=== PATIENT | male | born 1965 | race Caucasian/White ===

== ENCOUNTER 2017-09-09 14:21 | Inpatient (IN) | payer OTHER | END 2017-09-14 11:30 | disposition other institution (70) | DRG 773 | LOC: YASAS 14:21 → Y6N 18:00 | PROVIDERS: ADMIT Internal Medicine | PROC: HZ2ZZZZ Detoxification Services for Substance Abuse Treatment (ICD-10-PCS; principal; 2017-09-09) | CPT/HCPCS: 36415; 71046-TC-FY; 71250-TC; 80053; 81003; 85027; 86593; 87389; 93005; 93010; J0735 ==

== ENCOUNTER 2017-09-14 11:41 | Inpatient (IN) | payer OTHER ==
--- NOTE | 2017-09-14 12:11 | HP ---
Psychiatrist Admission - Data Date of interview: 09/14/17 Admission source: 6N Identifying data: This is the second [facility] admission for this 51 years old single male, father of 2 children, unemployed on public assistance, homeless Medical History: Significant for bronchial asthma, hepatitis C, PPD+ and history of surgery for appendectomy at age 21. Smokes 3 cigarettes daily Psychiatric History: Reports that his first psychiatric contact was in 2011 at [facility] in the [place] where he was participating in [employer]. Claims that he went to see that psychiatrist for depression in the context of homelessness. However when he disclosed to him about hearing voices once in 2001 in [place], after using heroin mixed with horse tranquilizer, he was prescribed Zoloft and Zyprexa. Reports that he did not take medications regularly and stopped completely when he stopped taking methadone February of 2015. Denies previous psychiatric hospitalization or suicidal attempt. At present, reports feeling and sleeping well Physical/Sexual Abuse/Trauma History: Denies history of physical or sexual abuse , and no history of service. Additional Comment: Reports history of 3-4 previous misdemeanor arrests on charges of trespassing(jumping the turnstile) Allergies/Adverse Reactions: Allergies Allergy/AdvReac Type Severity Reaction Status Date / Time Fish Containing Products Allergy Severe Rash Verified 09/09/17 16:43 tomato Allergy Severe Verified 09/09/17 16:43 Date of last physical exam: 09/09/17 Concur with the findings of this exam: Yes - Substance Abuse/Tx History Hx Alcohol Use: No Hx Substance Use: Yes Substance Use Type: Heroin (Started using heroin at age 18, consumes 5 bags daily. Last used on 09/08/17) Hx Substance Use Treatment: Yes (2 previous inpt detox & one inpt rehab @ [facility]( 3W)May-Jun 2015) Mental Status Exam - Mental Status Exam Alert and Oriented to: Time, Place, Person Cognitive Function: Fair Patient Appearance: Disheveled Mood: Hopeful, Euthymic Patient Behavior: Cooperative Speech Pattern: Clear Voice Loudness: Normal Thought Process: Intact, Goal Oriented Hallucinations: Denies Suicidal Ideation: Denies Homicidal Ideation: Denies Insight/Judgement: Fair Sleep: Well Appetite: Good Muscle strength/Tone: Normal Gait/Station: Normal Psychiatric Findings - Problem List (Lydia 1, 2,3) (1) Opioid dependence Current Visit: No Status: Acute Qualifiers: Substance use status: uncomplicated Qualified Code(s): F11.20 - Opioid dependence, uncomplicated (2) Nicotine dependence Current Visit: No Status: Chronic Qualifiers: Nicotine product type: cigarettes Substance use status: uncomplicated Qualified Code(s): F17.210 - Nicotine dependence, cigarettes, uncomplicated (3) Bronchial asthma Current Visit: Yes Status: Chronic (4) Hepatitis-C Current Visit: Yes Status: Suspected - Initial Treatment Plan Initial Treatment Plan: Monitor progress
[2017-09-14] MEDS ORDERED: guaiFENesin/D-METHORPHAN HB 10 ML UNIT-DOSE CUPS PO PRN (13:50)
[2017-09-14] MEDS ORDERED: MAGNESIUM CITRATE 300 ML BOTTLE PO PRN (13:50)
[2017-09-14] MEDS ORDERED: ACETAMINOPHEN 325 MG TABLET (FP) PO PRN (13:50)
[2017-09-14] MEDS ORDERED: hydrOXYzine PAMOATE 50 MG CAPSULE (FP) PO PRN (13:50)
[2017-09-14] MEDS ORDERED: LOPERAMIDE HCL 2 MG CAPSULE PO PRN (13:50)
[2017-09-14] MEDS ORDERED: MAGNESIUM HYDROX 2400MG/30ML ORAL SUSPENSION 30 ML CUP PO PRN (13:50)
[2017-09-14] MEDS ORDERED: IBUPROFEN 400 MG TABLET (FP) PO PRN (13:50)
[2017-09-14] MEDS ORDERED: P-EPHED 60MG/TRIPROLIDI 2.5MG TABLET PO PRN (13:50)
[2017-09-14] MEDS ORDERED: MAG HYDROX/AL HYDROX/SIMETH 30 ML UNIT-DOSE CUP PO PRN (13:50)
[2017-09-14] MEDS ORDERED: MENTHOL/PHENOL 1 EACH UD MM PRN (13:50)
--- NOTE | 2017-09-14 13:50 | HP ---
[facility] Rehab Assess/Revision - Admission History Admitted to Rehab from: [facility] Date of Admission to Rehab: 09/14/17 - Vital signs Vital Signs: Vital Signs Period Temp Pulse Resp BP Sys/Vázquez Pulse Ox Last 24 Hr 98.2 F 73 20 98/70 - Findings Detox History & Physical reviewed: Yes Concur with findings: Yes Comments/Additional Findings: for rehab as protocol Inpatient Rehab Admission - Initial Determination Are CD services needed?: Yes Free of communicable disease: Yes Not in need of hospitalization: Yes - Rehab Admission Criteria Previous failed treatment: Yes Poor recovery environment: Yes Comorbidities: Yes Lacks judgement: No Patient is meeting Inpatient Rehab admission criteria:: Yes
[2017-09-14] MEDS ORDERED: ALBUTEROL SO4 18 GM HFA INHALER IH PRN (13:51)
[2017-09-14] MEDS: CLOTRIMAZOLE 10 MG TROCHE (FP) PO SCH ×2 (17:38→21:37)
[2017-09-14] MEDS: BUDESONIDE/FORMETEROL FUMARATE 80/4.5 mcg INHALER IH SCH (21:35)
[2017-09-14] MEDS: THIAMINE HCL 100 MG TABLET (FP) PO SCH (21:36)
[2017-09-15] MEDS: CLOTRIMAZOLE 10 MG TROCHE (FP) PO SCH ×5 (06:20→21:54)
[2017-09-15] MEDS: PRENATAL VITAMINS W/ FOLIC ACID TABLET (FP) PO SCH (10:30)
[2017-09-15] MEDS: BUDESONIDE/FORMETEROL FUMARATE 80/4.5 mcg INHALER IH SCH ×2 (10:30→21:53)
[2017-09-15] MEDS: THIAMINE HCL 100 MG TABLET (FP) PO SCH (21:54)
[2017-09-16] MEDS: CLOTRIMAZOLE 10 MG TROCHE (FP) PO SCH ×5 (07:07→21:53)
[2017-09-16] MEDS: PRENATAL VITAMINS W/ FOLIC ACID TABLET (FP) PO SCH (10:44)
[2017-09-16] MEDS: BUDESONIDE/FORMETEROL FUMARATE 80/4.5 mcg INHALER IH SCH ×2 (10:45→21:53)
[2017-09-16] MEDS: MELATONIN 5 MG TABLETS PO PRN (21:52)
[2017-09-16] MEDS: THIAMINE HCL 100 MG TABLET (FP) PO SCH (21:52)
[2017-09-17] MEDS: CLOTRIMAZOLE 10 MG TROCHE (FP) PO SCH ×5 (06:42→23:01)
[2017-09-17] MEDS: PRENATAL VITAMINS W/ FOLIC ACID TABLET (FP) PO SCH (10:55)
[2017-09-17] MEDS: BUDESONIDE/FORMETEROL FUMARATE 80/4.5 mcg INHALER IH SCH ×2 (10:56→23:01)
[2017-09-17] MEDS ORDERED: PT OWN MED DRAWER 7, Y5N ONE (20:47)
[2017-09-17] MEDS: THIAMINE HCL 100 MG TABLET (FP) PO SCH (23:01)
[2017-09-18] MEDS: CLOTRIMAZOLE 10 MG TROCHE (FP) PO SCH ×5 (06:26→21:58)
[2017-09-18] MEDS: BUDESONIDE/FORMETEROL FUMARATE 80/4.5 mcg INHALER IH SCH ×2 (11:13→21:58)
[2017-09-18] MEDS: PRENATAL VITAMINS W/ FOLIC ACID TABLET (FP) PO SCH (11:13)
[2017-09-18] MEDS: MELATONIN 5 MG TABLETS PO PRN (21:57)
[2017-09-18] MEDS: THIAMINE HCL 100 MG TABLET (FP) PO SCH (21:57)
[2017-09-18] MEDS ORDERED: PT OWN MED DRAWER 7, Y5N ONE ×2 (21:59→22:13)
[2017-09-18] MEDS: TOLNAFTATE 1% CREAM 15 GM TUBE TP SCH (22:00)
[2017-09-19] MEDS: CLOTRIMAZOLE 10 MG TROCHE (FP) PO SCH ×5 (06:32→22:10)
[2017-09-19] MEDS: PRENATAL VITAMINS W/ FOLIC ACID TABLET (FP) PO SCH (10:50)
[2017-09-19] MEDS: BUDESONIDE/FORMETEROL FUMARATE 80/4.5 mcg INHALER IH SCH ×2 (10:51→22:10)
[2017-09-19] MEDS: TOLNAFTATE 1% CREAM 15 GM TUBE TP SCH ×2 (10:51→22:11)
[2017-09-19] MEDS: MELATONIN 5 MG TABLETS PO PRN (22:10)
[2017-09-19] MEDS: THIAMINE HCL 100 MG TABLET (FP) PO SCH (22:10)
[2017-09-20] MEDS: CLOTRIMAZOLE 10 MG TROCHE (FP) PO SCH ×5 (06:31→22:14)
[2017-09-20] MEDS ORDERED: PT OWN MED DRAWER 7, Y5N ONE ×2 (09:41→20:30)
[2017-09-20] MEDS: BUDESONIDE/FORMETEROL FUMARATE 80/4.5 mcg INHALER IH SCH ×2 (11:02→22:14)
[2017-09-20] MEDS: PRENATAL VITAMINS W/ FOLIC ACID TABLET (FP) PO SCH (11:02)
[2017-09-20] MEDS: TOLNAFTATE 1% CREAM 15 GM TUBE TP SCH ×2 (11:02→22:14)
[2017-09-20] MEDS: THIAMINE HCL 100 MG TABLET (FP) PO SCH (22:14)
[2017-09-20] MEDS: MELATONIN 5 MG TABLETS PO PRN (22:15)
[2017-09-21] MEDS: CLOTRIMAZOLE 10 MG TROCHE (FP) PO SCH ×5 (06:33→21:14)
[2017-09-21] MEDS: PRENATAL VITAMINS W/ FOLIC ACID TABLET (FP) PO SCH (10:21)
[2017-09-21] MEDS: TOLNAFTATE 1% CREAM 15 GM TUBE TP SCH ×2 (10:22→21:14)
[2017-09-21] MEDS: BUDESONIDE/FORMETEROL FUMARATE 80/4.5 mcg INHALER IH SCH ×2 (10:23→21:12)
[2017-09-21] MEDS: THIAMINE HCL 100 MG TABLET (FP) PO SCH (21:12)
[2017-09-21] MEDS: MELATONIN 5 MG TABLETS PO PRN (21:12)
[2017-09-21] MEDS ORDERED: PT OWN MED DRAWER 7, Y5N ONE (21:14)
[2017-09-22] MEDS: CLOTRIMAZOLE 10 MG TROCHE (FP) PO SCH ×5 (06:44→22:08)
[2017-09-22] MEDS: PRENATAL VITAMINS W/ FOLIC ACID TABLET (FP) PO SCH (10:11)
[2017-09-22] MEDS: BUDESONIDE/FORMETEROL FUMARATE 80/4.5 mcg INHALER IH SCH ×2 (10:12→22:09)
[2017-09-22] MEDS: TOLNAFTATE 1% CREAM 15 GM TUBE TP SCH ×2 (10:12→22:09)
[2017-09-22] MEDS ORDERED: PT OWN MED DRAWER 7, Y5N ONE (22:09)
[2017-09-22] MEDS: THIAMINE HCL 100 MG TABLET (FP) PO SCH (22:10)
[2017-09-22] MEDS: MELATONIN 5 MG TABLETS PO PRN (22:10)
[2017-09-23] MEDS: CLOTRIMAZOLE 10 MG TROCHE (FP) PO SCH ×4 (06:36→22:02)
[2017-09-23] MEDS: TOLNAFTATE 1% CREAM 15 GM TUBE TP SCH ×2 (10:55→22:03)
[2017-09-23] MEDS: PRENATAL VITAMINS W/ FOLIC ACID TABLET (FP) PO SCH (10:55)
[2017-09-23] MEDS: BUDESONIDE/FORMETEROL FUMARATE 80/4.5 mcg INHALER IH SCH ×2 (10:55→22:02)
[2017-09-23] MEDS: THIAMINE HCL 100 MG TABLET (FP) PO SCH (22:01)
[2017-09-23] MEDS: MELATONIN 5 MG TABLETS PO PRN (22:03)
[2017-09-24] MEDS: CLOTRIMAZOLE 10 MG TROCHE (FP) PO SCH ×6 (01:28→21:48)
[2017-09-24] MEDS: PRENATAL VITAMINS W/ FOLIC ACID TABLET (FP) PO SCH (10:20)
[2017-09-24] MEDS: TOLNAFTATE 1% CREAM 15 GM TUBE TP SCH ×2 (10:20→21:48)
[2017-09-24] MEDS: BUDESONIDE/FORMETEROL FUMARATE 80/4.5 mcg INHALER IH SCH ×2 (10:20→21:48)
[2017-09-24] MEDS ORDERED: PT OWN MED DRAWER 7, Y5N ONE (20:26)
[2017-09-24] MEDS: THIAMINE HCL 100 MG TABLET (FP) PO SCH (21:48)
[2017-09-24] MEDS: MELATONIN 5 MG TABLETS PO PRN (21:49)
[2017-09-25] MEDS: CLOTRIMAZOLE 10 MG TROCHE (FP) PO SCH ×5 (06:57→21:53)
[2017-09-25] MEDS: PRENATAL VITAMINS W/ FOLIC ACID TABLET (FP) PO SCH (10:24)
[2017-09-25] MEDS: TOLNAFTATE 1% CREAM 15 GM TUBE TP SCH ×2 (10:24→21:54)
[2017-09-25] MEDS: BUDESONIDE/FORMETEROL FUMARATE 80/4.5 mcg INHALER IH SCH ×2 (10:24→21:53)
[2017-09-25] MEDS: THIAMINE HCL 100 MG TABLET (FP) PO SCH (21:53)
[2017-09-25] MEDS: MELATONIN 5 MG TABLETS PO PRN (21:53)
[2017-09-26] MEDS: CLOTRIMAZOLE 10 MG TROCHE (FP) PO SCH ×5 (06:55→21:19)
[2017-09-26] MEDS: BUDESONIDE/FORMETEROL FUMARATE 80/4.5 mcg INHALER IH SCH ×2 (10:37→21:20)
[2017-09-26] MEDS: PRENATAL VITAMINS W/ FOLIC ACID TABLET (FP) PO SCH (10:37)
[2017-09-26] MEDS: TOLNAFTATE 1% CREAM 15 GM TUBE TP SCH ×2 (10:37→21:20)
[2017-09-26] MEDS: THIAMINE HCL 100 MG TABLET (FP) PO SCH (21:19)
[2017-09-26] MEDS ORDERED: PT OWN MED DRAWER 7, Y5N ONE (21:20)
[2017-09-26] MEDS: MELATONIN 5 MG TABLETS PO PRN (21:21)
[2017-09-27] MEDS: CLOTRIMAZOLE 10 MG TROCHE (FP) PO SCH ×5 (06:49→21:46)
[2017-09-27] MEDS: TOLNAFTATE 1% CREAM 15 GM TUBE TP SCH ×2 (10:27→21:46)
[2017-09-27] MEDS: PRENATAL VITAMINS W/ FOLIC ACID TABLET (FP) PO SCH (10:27)
[2017-09-27] MEDS: BUDESONIDE/FORMETEROL FUMARATE 80/4.5 mcg INHALER IH SCH ×2 (10:27→21:46)
[2017-09-27] MEDS: MELATONIN 5 MG TABLETS PO PRN (21:46)
[2017-09-27] MEDS: THIAMINE HCL 100 MG TABLET (FP) PO SCH (21:46)
[2017-09-28] MEDS: CLOTRIMAZOLE 10 MG TROCHE (FP) PO SCH ×3 (07:06→14:23)
[2017-09-28] MEDS: BUDESONIDE/FORMETEROL FUMARATE 80/4.5 mcg INHALER IH SCH ×2 (10:09→22:00)
[2017-09-28] MEDS: PRENATAL VITAMINS W/ FOLIC ACID TABLET (FP) PO SCH (10:09)
[2017-09-28] MEDS: TOLNAFTATE 1% CREAM 15 GM TUBE TP SCH ×2 (10:10→22:00)
[2017-09-28] MEDS: THIAMINE HCL 100 MG TABLET (FP) PO SCH (22:00)
[2017-09-28] MEDS: MELATONIN 5 MG TABLETS PO PRN (22:00)
[2017-09-29] MEDS: PRENATAL VITAMINS W/ FOLIC ACID TABLET (FP) PO SCH (10:43)
[2017-09-29] MEDS: TOLNAFTATE 1% CREAM 15 GM TUBE TP SCH ×2 (10:43→22:07)
[2017-09-29] MEDS: BUDESONIDE/FORMETEROL FUMARATE 80/4.5 mcg INHALER IH SCH ×2 (10:43→22:08)
[2017-09-29] MEDS: MELATONIN 5 MG TABLETS PO PRN (22:07)
[2017-09-29] MEDS: THIAMINE HCL 100 MG TABLET (FP) PO SCH (22:07)
[2017-09-29] MEDS ORDERED: PT OWN MED DRAWER 7, Y5N ONE (22:09)
[2017-09-30] MEDS: PRENATAL VITAMINS W/ FOLIC ACID TABLET (FP) PO SCH (10:05)
[2017-09-30] MEDS: TOLNAFTATE 1% CREAM 15 GM TUBE TP SCH ×2 (10:06→21:52)
[2017-09-30] MEDS: BUDESONIDE/FORMETEROL FUMARATE 80/4.5 mcg INHALER IH SCH ×2 (10:06→21:52)
[2017-09-30] MEDS: THIAMINE HCL 100 MG TABLET (FP) PO SCH (21:51)
[2017-09-30] MEDS: MELATONIN 5 MG TABLETS PO PRN (21:51)
[2017-09-30] MEDS ORDERED: PT OWN MED DRAWER 7, Y5N ONE (21:52)
[2017-10-01] MEDS: TOLNAFTATE 1% CREAM 15 GM TUBE TP SCH ×2 (10:46→22:06)
[2017-10-01] MEDS: BUDESONIDE/FORMETEROL FUMARATE 80/4.5 mcg INHALER IH SCH ×2 (10:46→22:05)
[2017-10-01] MEDS: PRENATAL VITAMINS W/ FOLIC ACID TABLET (FP) PO SCH (10:46)
[2017-10-01] MEDS: THIAMINE HCL 100 MG TABLET (FP) PO SCH (22:05)
[2017-10-01] MEDS: MELATONIN 5 MG TABLETS PO PRN (22:05)
[2017-10-02] MEDS: TOLNAFTATE 1% CREAM 15 GM TUBE TP SCH ×2 (10:20→21:48)
[2017-10-02] MEDS: BUDESONIDE/FORMETEROL FUMARATE 80/4.5 mcg INHALER IH SCH ×2 (10:20→21:48)
[2017-10-02] MEDS: PRENATAL VITAMINS W/ FOLIC ACID TABLET (FP) PO SCH (10:20)
[2017-10-02] MEDS: THIAMINE HCL 100 MG TABLET (FP) PO SCH (21:47)
[2017-10-02] MEDS ORDERED: PT OWN MED DRAWER 7, Y5N ONE (21:48)
[2017-10-02] MEDS: MELATONIN 5 MG TABLETS PO PRN (21:49)
[2017-10-03] MEDS: BUDESONIDE/FORMETEROL FUMARATE 80/4.5 mcg INHALER IH SCH ×2 (11:24→22:17)
[2017-10-03] MEDS: PRENATAL VITAMINS W/ FOLIC ACID TABLET (FP) PO SCH (11:24)
[2017-10-03] MEDS: TOLNAFTATE 1% CREAM 15 GM TUBE TP SCH ×2 (11:25→22:18)
[2017-10-03] MEDS: THIAMINE HCL 100 MG TABLET (FP) PO SCH (22:16)
[2017-10-03] MEDS: MELATONIN 5 MG TABLETS PO PRN (22:19)
[2017-10-04] MEDS: TOLNAFTATE 1% CREAM 15 GM TUBE TP SCH ×2 (10:05→21:59)
[2017-10-04] MEDS: PRENATAL VITAMINS W/ FOLIC ACID TABLET (FP) PO SCH (10:05)
[2017-10-04] MEDS: BUDESONIDE/FORMETEROL FUMARATE 80/4.5 mcg INHALER IH SCH ×2 (10:05→21:57)
[2017-10-04] MEDS: THIAMINE HCL 100 MG TABLET (FP) PO SCH (21:51)
[2017-10-04] MEDS: MELATONIN 5 MG TABLETS PO PRN (21:53)
[2017-10-04] MEDS ORDERED: PT OWN MED DRAWER 7, Y5N ONE (21:57)
[2017-10-05] MEDS: TOLNAFTATE 1% CREAM 15 GM TUBE TP SCH ×2 (10:13→23:43)
[2017-10-05] MEDS: PRENATAL VITAMINS W/ FOLIC ACID TABLET (FP) PO SCH (10:13)
[2017-10-05] MEDS: BUDESONIDE/FORMETEROL FUMARATE 80/4.5 mcg INHALER IH SCH ×2 (10:13→23:43)
[2017-10-05] MEDS: THIAMINE HCL 100 MG TABLET (FP) PO SCH (22:22)
[2017-10-05] MEDS: MELATONIN 5 MG TABLETS PO PRN (22:22)
[2017-10-05] MEDS ORDERED: PT OWN MED DRAWER 7, Y5N ONE (22:25)
--- NOTE | 2017-10-06 06:40 | PN ---
Psychiatric Progress Note Vital Signs: Vital Signs Period Temp Pulse Resp BP Sys/Vázquez Pulse Ox Last 24 Hr 20 Date of Session: 10/06/17 Chief Complaint:: Discharge Note HPI: Patient addressing Opioid Dependence comorbid with Nicotine Dependence ROS: Asthma, Hep C Current Medications: Active Medications Generic Name Dose Route Start Last Admin Trade Name Freq PRN Reason Stop Dose Admin Acetaminophen 650 mg 09/14/17 13:50 Tylenol - PO Q4H PRN FEVER Al Hydroxide/Mg Hydroxide 30 ml 09/14/17 13:50 Mylanta Oral Suspension - PO Q6H PRN DYSPEPSIA Albuterol Sulfate 2 puff 09/14/17 13:51 Ventolin Hfa Inhaler - IH Q4H PRN ASTHMA Budesonide/Formoterol Fumarate 1 puff 09/14/17 22:00 10/05/17 23:43 Symbicort 80/4.5mcg - IH Not Given BID JASVIR Eucalyptus/Menthol/Phenol/Sorbitol 1 each 09/14/17 13:50 Cepastat Lozenge - MM Q4H PRN SORE THROAT Guaifenesin 10 ml 09/14/17 13:50 Robitussin Dm - PO Q6H PRN COUGH Hydroxyzine Pamoate 50 mg 09/14/17 13:50 Vistaril - PO Q4H PRN AGITATION Ibuprofen 400 mg 09/14/17 13:50 Motrin - PO Q6H PRN Pain Level 4-6 Loperamide HCl 4 mg 09/14/17 13:50 Imodium - PO Q6H PRN DIARRHEA Magnesium Citrate 300 ml 09/14/17 13:50 Citroma - PO Q48H PRN CONSTIPATION Magnesium Hydroxide 30 ml 09/14/17 13:50 Milk Of Magnesia - PO DAILY PRN CONSTIPATION Melatonin 5 mg 09/14/17 22:00 10/05/17 22:22 Melatonin PO 5 mg HS PRN Administration INSOMNIA Multivit/Folic Acid/Iron 1 tab 09/15/17 10:00 10/05/17 10:13 Vitamins (Sjr) - PO Not Given DAILY JASVIR Pseudoephedrine/Triprolidine 1 combo 09/14/17 13:50 Actifed - PO TID PRN NASAL CONGESTION Thiamine HCl 100 mg 09/14/17 22:00 10/05/17 22:22 Vitamin B1 - PO 100 mg HS JASVIR Administration Tolnaftate 1 applic 09/18/17 22:00 10/05/17 23:43 Tinactin 1% Cream - TP Not Given BID [facility] Current Side Effect: No Lab tests ordered: Yes Lab tests reviewed: Yes Provider note:: Patient will copmplete this program on 10/07/17. He has met is treatment goals and will continue to address his issues in [facility] term residential treatment at [facility]. He is stable for discharge on 10/07/17 Total face to face time:: 35 Mental Status Exam - Mental Status Exam Alert and Oriented to: Time, Place, Person Cognitive Function: Fair Patient Appearance: Well Groomed Mood: Hopeful, Euthymic Affect: Appropriate Patient Behavior: Cooperative Speech Pattern: Clear, Artificially Ventilated Thought Process: Intact, Goal Oriented Thought Disorder: Not Present Hallucinations: Denies Suicidal Ideation: Denies Homicidal Ideation: Denies Insight/Judgement: Fair Sleep: Well Appetite: Good Muscle strength/Tone: Normal Gait/Station: Normal Psychiatric Treatment Plan - Problem List (1) Opioid dependence Current Visit: No Qualifiers: Substance use status: uncomplicated Qualified Code(s): F11.20 - Opioid dependence, uncomplicated (2) Nicotine dependence Current Visit: No Qualifiers: Nicotine product type: cigarettes Substance use status: uncomplicated Qualified Code(s): F17.210 - Nicotine dependence, cigarettes, uncomplicated (3) Bronchial asthma Current Visit: Yes (4) Hepatitis-C Current Visit: Yes Initial treatment plan: Patient will be discharged tomorrow and referred to [facility] for snf residential treatment
[2017-10-06] MEDS: TOLNAFTATE 1% CREAM 15 GM TUBE TP SCH ×2 (10:49→21:55)
[2017-10-06] MEDS: BUDESONIDE/FORMETEROL FUMARATE 80/4.5 mcg INHALER IH SCH ×2 (10:49→21:55)
[2017-10-06] MEDS: PRENATAL VITAMINS W/ FOLIC ACID TABLET (FP) PO SCH (10:49)
[2017-10-06] MEDS ORDERED: PT OWN MED DRAWER 7, Y5N ONE (20:54)
[2017-10-06] MEDS: THIAMINE HCL 100 MG TABLET (FP) PO SCH (21:55)
[2017-10-06] MEDS: MELATONIN 5 MG TABLETS PO PRN (21:56)
[2017-10-07] MEDS: BUDESONIDE/FORMETEROL FUMARATE 80/4.5 mcg INHALER IH SCH ×2 (09:58→21:53)
[2017-10-07] MEDS: PRENATAL VITAMINS W/ FOLIC ACID TABLET (FP) PO SCH (09:58)
[2017-10-07] MEDS: TOLNAFTATE 1% CREAM 15 GM TUBE TP SCH ×2 (09:58→21:53)
[2017-10-07] MEDS: MELATONIN 5 MG TABLETS PO PRN (21:51)
[2017-10-07] MEDS: THIAMINE HCL 100 MG TABLET (FP) PO SCH (21:51)
[2017-10-07] MEDS ORDERED: PT OWN MED DRAWER 7, Y5N ONE (21:53)
[2017-10-08] MEDS: BUDESONIDE/FORMETEROL FUMARATE 80/4.5 mcg INHALER IH SCH ×2 (10:13→22:26)
[2017-10-08] MEDS: TOLNAFTATE 1% CREAM 15 GM TUBE TP SCH ×2 (10:13→22:27)
[2017-10-08] MEDS: PRENATAL VITAMINS W/ FOLIC ACID TABLET (FP) PO SCH (10:13)
[2017-10-08] MEDS: MELATONIN 5 MG TABLETS PO PRN (22:24)
[2017-10-08] MEDS: THIAMINE HCL 100 MG TABLET (FP) PO SCH (22:26)
[2017-10-09 07:25] VITALS: BP 124/75; PULSE 72; TEMP 97.9
--- NOTE | 2017-10-09 08:56 | PN ---
Psychiatric Progress Note Vital Signs: Vital Signs Period Temp Pulse Resp BP Sys/Vázquez Pulse Ox Last 24 Hr 97.9 F 72 18-18 124/75 Date of Session: 10/09/17 Chief Complaint:: Discharge Note HPI: Patient addressing Opioid Dependence comorbid with Nicotine Dependence ROS: Asthma, Hep C Current Medications: Active Medications Generic Name Dose Route Start Last Admin Trade Name Freq PRN Reason Stop Dose Admin Acetaminophen 650 mg 09/14/17 13:50 Tylenol - PO Q4H PRN FEVER Al Hydroxide/Mg Hydroxide 30 ml 09/14/17 13:50 Mylanta Oral Suspension - PO Q6H PRN DYSPEPSIA Albuterol Sulfate 2 puff 09/14/17 13:51 Ventolin Hfa Inhaler - IH Q4H PRN ASTHMA Budesonide/Formoterol Fumarate 1 puff 09/14/17 22:00 10/08/17 22:26 Symbicort 80/4.5mcg - IH 1 puff BID JASVIR Administration Eucalyptus/Menthol/Phenol/Sorbitol 1 each 09/14/17 13:50 Cepastat Lozenge - MM Q4H PRN SORE THROAT Guaifenesin 10 ml 09/14/17 13:50 Robitussin Dm - PO Q6H PRN COUGH Hydroxyzine Pamoate 50 mg 09/14/17 13:50 Vistaril - PO Q4H PRN AGITATION Ibuprofen 400 mg 09/14/17 13:50 Motrin - PO Q6H PRN Pain Level 4-6 Loperamide HCl 4 mg 09/14/17 13:50 Imodium - PO Q6H PRN DIARRHEA Magnesium Citrate 300 ml 09/14/17 13:50 Citroma - PO Q48H PRN CONSTIPATION Magnesium Hydroxide 30 ml 09/14/17 13:50 Milk Of Magnesia - PO DAILY PRN CONSTIPATION Melatonin 5 mg 09/14/17 22:00 10/08/17 22:24 Melatonin PO 5 mg HS PRN Administration INSOMNIA Multivit/Folic Acid/Iron 1 tab 09/15/17 10:00 10/08/17 10:13 Vitamins (Sjr) - PO Not Given DAILY JASVIR Pseudoephedrine/Triprolidine 1 combo 09/14/17 13:50 Actifed - PO TID PRN NASAL CONGESTION Thiamine HCl 100 mg 09/14/17 22:00 10/08/17 22:26 Vitamin B1 - PO 100 mg HS JASVIR Administration Tolnaftate 1 applic 09/18/17 22:00 10/08/17 22:27 Tinactin 1% Cream - TP Not Given BID JASVIR Current Side Effect: No Lab tests ordered: Yes Lab tests reviewed: Yes Provider note:: Patient will complete this program on 10/09/17. He has met is treatment goals and will continue to address his issues in [facility] residential treatment at [facility] at [address] [place] [address]. Told keno writer / runner that from his participation in this program, he has learned the importance of making meetings and have a sponsor. He is stable for discharge on 10/09/17 Total face to face time:: 35 Mental Status Exam - Mental Status Exam Alert and Oriented to: Time, Place, Person Cognitive Function: Fair Patient Appearance: Well Groomed Mood: Hopeful, Euthymic Affect: Appropriate Patient Behavior: Cooperative Speech Pattern: Clear Voice Loudness: Normal Thought Process: Intact, Goal Oriented Thought Disorder: Not Present Hallucinations: Denies Suicidal Ideation: Denies Insight/Judgement: Fair Sleep: Well Appetite: Good Muscle strength/Tone: Normal Gait/Station: Normal Psychiatric Treatment Plan - Problem List (1) Opioid dependence Current Visit: No Qualifiers: Substance use status: uncomplicated Qualified Code(s): F11.20 - Opioid dependence, uncomplicated (2) Nicotine dependence Current Visit: No Qualifiers: Nicotine product type: cigarettes Substance use status: uncomplicated Qualified Code(s): F17.210 - Nicotine dependence, cigarettes, uncomplicated (3) Bronchial asthma Current Visit: Yes (4) Hepatitis-C Current Visit: Yes Initial treatment plan: Patient will be discharged tomorrow and referred to [facility] for custodial residential treatment
[2017-10-09] MEDS: PRENATAL VITAMINS W/ FOLIC ACID TABLET (FP) PO SCH (10:20)
[2017-10-09] MEDS: BUDESONIDE/FORMETEROL FUMARATE 80/4.5 mcg INHALER IH SCH (10:20)
[2017-10-09] MEDS: TOLNAFTATE 1% CREAM 15 GM TUBE TP SCH (10:20)
[2017-10-09] MEDS ORDERED: PT OWN MED DRAWER 7, Y5N ONE (12:23)
== END 2017-10-09 12:25 | disposition home or self-care (01) | DRG 772 ==
LOC: YASAS 11:41 → Y3W 11:50
PROVIDERS: ADMIT Psychiatry & Neurology Psychiatry; ATTEND Psychiatry & Neurology Psychiatry
PROC: HZ42ZZZ Group Counseling for Substance Abuse Treatment, Cognitive-Behavioral (ICD-10-PCS; principal; 2017-09-14)
DX: F11.20 Opioid dependence, uncomplicated (principal); F17.210 Nicotine dependence, cigarettes, uncomplicated; B18.2 Chronic viral hepatitis C; J45.909 Unspecified asthma, uncomplicated; Z59.0 Homelessness